=== PATIENT | female | born 1995 | race American Indian/Alaskan Native ===

== ENCOUNTER 2020-09-04 14:24 | Outpatient (CLI) | payer MEDICAID ==
[2020-09-04 15:07] VITALS: BP 132/71
[2020-09-04] MEDS ORDERED: LACTATED RINGERS 1,000 ML IV ONE (15:40)
[2020-09-04 17:30] LABS: Basophils # (Auto) 0.1 K/mm3 (0.0-0.1); Basophils % (Auto) 0.6 % (0.0-1.8); Eosinophils # (Auto) 0.2 K/mm3 (0.0-0.4); Eosinophils % (Auto) 2.1 % (0.0-4.3); Hematocrit 30.8 % (30.3-42.9); Hemoglobin 10.1 gm/dl (10.1-14.3); Lymphocytes # (Auto) 1.4 K/mm3 (1.2-5.4); Lymphocytes % (Auto) 15.7 % (13.4-35.0); Mean Corpuscular HGB Conc 33 % (30-34); Mean Corpuscular Volume 92 fl (79-97); Monocytes # (Auto) 0.9 K/mm3 (0.0-0.8); Monocytes % (Auto) 10.4 % (0.0-7.3); Platelet Count 353 K/mm3 (140-440); Red Blood Count 3.35 M/mm3 (3.65-5.03); Red Cell Distribution Width 13.5 % (13.2-15.2)
[2020-09-04 17:38] LABS: Hepatitis C Virus Antibody Non-Reactive (NonReactive)
--- NOTE | 2020-09-04 18:20 | Ultrasound Report ---
ULTRASOUND OBSTETRIC LIMITED ULTRASOUND BIOPHYSICAL PROFILE INDICATION / CLINICAL INFORMATION: no . COMPARISON: None available. FINDINGS: BREATHING MOVEMENT = 2 GROSS BODY MOVEMENT = 2 TONE = 2 QUALITATIVE AMNIOTIC FLUID VOLUME = 2 TOTAL BIOPHYSICAL SCORE = 8/8 Biparietal Diameter = 9.8 cm = 40.1 weeks.days Head Circumference = 34.8 cm = 40.2 weeks.days Abdominal Circumference = 35.3 cm = 39.1 weeks.days Femur Length = 7.7 cm = 39.4 weeks.days Average Ultrasound Age (AUA) = 39.6 weeks.days Heart Rate: 131 beats per minute. Estimated Weight in grams (if calculated): 3810 Position: cephalic. Placenta: posterofundal and free of the os. Amniotic Fluid Volume: normal Amniotic Fluid Index (BLAISE) in cm (if calculated): 15.4. Maternal Adnexa: No significant abnormality. ANATOMY: organs (including the bladder, stomach, kidneys, heart, umbilical cord, diaphragm, cord inserti on, spine and intracranial structures) are visualized and show no significant abnormality with the fo llowing exception(s): Head anatomy and cord insertion were not demonstrated secondary to lie. ADDITIONAL FINDINGS: None. IMPRESSION: 1. Biophysical Score = 8/8 2. No significant sonographic abnormality. Signer Name: Edilson Arce MD Signed: 09/04/2020 6:19 PM Workstation Name: [id number]
== END 2020-09-04 18:25 | disposition home or self-care (01) ==
LOC: TRG 14:24 → APU 14:26 → TRG 18:25
PROVIDERS: ATTEND Obstetrics & Gynecology
DX: O47.03 False labor before 37 completed weeks of gestation, third trimester (principal); Z3A.36 36 weeks gestation of pregnancy
CPT/HCPCS: 36415; 76805; 76819; 85025; 86592; 86706; 86762; 86803; 87806